=== PATIENT | female | born 1955 | race Caucasian/White ===

== ENCOUNTER 2018-07-22 09:41 | Observation (INO) ==
[2018-07-22 10:27] LABS: Basophils % 0.4 % (0.0-0.8); Eosinophils # 0.2 10*3/uL (0.0-0.87); Eosinophils % 1.5 % (0.00-10.9); Hematocrit 37.7 VOL% (35.7-47.0); Hemoglobin 11.8 GM/DL (12.0-16.0); Immature Granulocytes % 0.7 %; Immature Granulocytes Absolute 0.07 #; Lymphocytes # 0.9 10*3/uL (1.4-4.0); Mean Corpuscular HGB Conc 31.3 GM/DL (32-36); Mean Corpuscular Hemoglobin 30 PG (27-34); Mean Corpuscular Volume 94.7 FL (87-102); Monocytes # 0.5 10*3/uL (0.11-0.8); Monocytes % 4.8 % (1.7-12.7); Neutrophils # 9.1 10*3/uL (1.4-7.4); Neutrophils % 84.6 % (38.7-73.9); Platelet Count 276 T/CUMM (130-400); Red Blood Count 3.98 MC/CUMM (3.8-5.5); Red Cell Distribution Width 14.2 % (9.3-17.3); White Blood Count 10.7 T/CUMM (4-12)
[2018-07-22 10:36] LABS: INR 3.8; Partial Thromboplastin Time 35.2 SECS (0-40)
[2018-07-22 10:46] LABS: PT Patient Result 40.9 SECS
[2018-07-22 10:59] LABS: Albumin 3.3 G/DL (3.4-5.0); Bilirubin,Total 0.5 MG/DL (0.2-1.0); Calcium 8.7 MG/DL (8.5-10.1); Osmolality,Calculated 295.1 MOS/KG (273-304); Potassium 4.8 MMOL/L (3.5-5.1); Total Protein 6.7 G/DL (6.4-8.3)
[2018-07-22] MEDS ORDERED: SODIUM CHLORIDE 0.9% 500 ML IV STA (11:39)
[2018-07-22] MEDS ORDERED: MECLIZINE 25 MG TABLET PO STA (11:40)
[2018-07-22] MEDS ORDERED: SODIUM CHLORIDE 0.9% 1,000 ML IV STA (11:47)
[2018-07-22] MEDS ORDERED: ONDANSETRON 4 MG/2 ML VIAL IV PRN (13:32)
[2018-07-22] MEDS ORDERED: DEXTROSE 50% 25 GM/50 ML VIAL IV PRN (13:37)
[2018-07-22] MEDS ORDERED: GLUCAGON 1 MG VIAL IM PRN (13:37)
[2018-07-22 13:49] LABS: Apearance,Urine Slightly Hazy (Clear); Bacteria,Urine Few /HPF (Few); Bilirubin,Urine Small mg/dL (Negative); Blood, Urine Small mg/dL (Negative); Glucose,Urine (UA) Negative (Negative); Hyaline Casts,Urine 13 /LPF (0-3); Ketones,Urine 5 mg/dL (Negative); Mucus,Urine Occasional /LPF (Occasional); Nitrite,Urine Negative (Negative); Protein,Urine 30 MG/DL; RBC,Urine 9 /HPF (0-4); Squamous Epithelial Cell,Urine Occasional /HPF (0-10); Urine Color Amber (Yellow); Urine Specific Gravity 1.021 (1.001-1.035); WBC,Urine 12 /HPF (0-6)
[2018-07-22] MEDS: ACETAMINOPHEN 325 MG TABLET PO PRN (14:41)
[2018-07-22] MEDS: LIDOCAINE 5% PATCH TRANSDERM SCH (15:21)
[2018-07-22] MEDS: LEVOFLOXACIN INJ 500 MG in PREMIX 1 EACH IV SCH (17:17)
[2018-07-22] MEDS: INSULIN LISPRO 100 UNIT/ML SUBCUT SCH ×3 (17:48→20:30)
[2018-07-22] MEDS: ATORVASTATIN 20 MG TABLET PO SCH (20:30)
[2018-07-22] MEDS: DULoxetine 30 MG CAPSULE PO SCH (20:30)
[2018-07-22] MEDS ORDERED: CICLOPIROX OLAMINE TOP SCH (21:00)
[2018-07-23] MEDS: ACETAMINOPHEN 325 MG TABLET PO PRN (02:46)
[2018-07-23 05:01] LABS: Basophils % 0.2 % (0.0-0.8); Eosinophils # 0.2 10*3/uL (0.0-0.87); Eosinophils % 2.5 % (0.00-10.9); Hematocrit 29.9 VOL% (35.7-47.0); Hemoglobin 9.2 GM/DL (12.0-16.0); Immature Granulocytes % 0.5 %; Immature Granulocytes Absolute 0.04 #; Lymphocytes # 0.9 10*3/uL (1.4-4.0); Lymphocytes % 11.1 % (21.3-54.2); Mean Corpuscular HGB Conc 30.8 GM/DL (32-36); Mean Corpuscular Hemoglobin 29 PG (27-34); Mean Corpuscular Volume 94.9 FL (87-102); Monocytes # 0.6 10*3/uL (0.11-0.8); Monocytes % 7.8 % (1.7-12.7); Neutrophils # 6.3 10*3/uL (1.4-7.4); Neutrophils % 77.9 % (38.7-73.9); Platelet Count 210 T/CUMM (130-400); Red Blood Count 3.15 MC/CUMM (3.8-5.5); Red Cell Distribution Width 14.3 % (9.3-17.3); White Blood Count 8.1 T/CUMM (4-12)
[2018-07-23 05:34] LABS: Albumin 2.6 G/DL (3.4-5.0); Bilirubin,Total 0.6 MG/DL (0.2-1.0); Calcium 8.3 MG/DL (8.5-10.1); Osmolality,Calculated 297.8 MOS/KG (273-304); Total Protein 5.7 G/DL (6.4-8.3)
[2018-07-23] MEDS ORDERED: ALLOPURINOL 100 MG TABLET PO SCH (09:00)
[2018-07-23] MEDS: INSULIN LISPRO 100 UNIT/ML SUBCUT SCH ×7 (09:30→21:16)
[2018-07-23] MEDS: INSULIN GLARGINE 100 UNIT/ML SUBCUT SCH (09:30)
[2018-07-23] MEDS: DULoxetine 30 MG CAPSULE PO SCH ×2 (09:31→21:17)
[2018-07-23] MEDS: ALLOPURINOL 300 MG TABLET PO SCH (09:31)
[2018-07-23] MEDS: PANTOPRAZOLE 40 MG TABLET PO SCH (09:31)
[2018-07-23 09:39] LABS: Risk Ratio 2.88
[2018-07-23 10:31] LABS: INR 3.9
[2018-07-23 10:33] LABS: PT Patient Result 41.7 SECS
[2018-07-23] MEDS: LIDOCAINE 5% PATCH TRANSDERM SCH (15:43)
[2018-07-23] MEDS: LEVOFLOXACIN INJ 500 MG in PREMIX 1 EACH IV SCH (15:44)
[2018-07-23] MEDS ORDERED: WARFARIN 2.5 MG TABLET PO SCH (18:00)
[2018-07-23] MEDS ORDERED: traZODone 50 MG TABLET PO SCH (21:00)
[2018-07-23] MEDS ORDERED: MELATONIN 3 MG TABLET PO SCH (21:00)
[2018-07-23] MEDS: DICLOFENAC 1% GEL 100 GM TUBE TOP SCH (21:16)
[2018-07-23] MEDS: ATORVASTATIN 20 MG TABLET PO SCH (21:17)
[2018-07-24 05:48] LABS: Basophils % 0.3 % (0.0-0.8); Eosinophils # 0.2 10*3/uL (0.0-0.87); Eosinophils % 3.8 % (0.00-10.9); Hematocrit 27.1 VOL% (35.7-47.0); Hemoglobin 8.4 GM/DL (12.0-16.0); Immature Granulocytes % 0.3 %; Immature Granulocytes Absolute 0.02 #; Lymphocytes # 0.7 10*3/uL (1.4-4.0); Lymphocytes % 11.1 % (21.3-54.2); Mean Corpuscular Hemoglobin 30 PG (27-34); Mean Corpuscular Volume 95.1 FL (87-102); Mean Platelet Volume 11.4 FL (9.6-12.0); Monocytes # 0.6 10*3/uL (0.11-0.8); Monocytes % 9.7 % (1.7-12.7); Neutrophils # 4.8 10*3/uL (1.4-7.4); Neutrophils % 74.8 % (38.7-73.9); Platelet Count 199 T/CUMM (130-400); Red Blood Count 2.85 MC/CUMM (3.8-5.5); Red Cell Distribution Width 14.2 % (9.3-17.3); White Blood Count 6.4 T/CUMM (4-12)
[2018-07-24 05:52] LABS: INR 2.5
[2018-07-24 05:55] LABS: PT Patient Result 26.5 SECS
[2018-07-24 06:18] LABS: Osmolality,Calculated 296.8 MOS/KG (273-304)
[2018-07-24] MEDS ORDERED: ATORVASTATIN 20 MG TABLET PO SCH (06:58)
[2018-07-24] MEDS: DULoxetine 30 MG CAPSULE PO SCH (09:09)
[2018-07-24] MEDS: ALLOPURINOL 300 MG TABLET PO SCH (09:10)
[2018-07-24] MEDS: PANTOPRAZOLE 40 MG TABLET PO SCH (09:10)
[2018-07-24] MEDS: INSULIN GLARGINE 100 UNIT/ML SUBCUT SCH (09:10)
[2018-07-24] MEDS: INSULIN LISPRO 100 UNIT/ML SUBCUT SCH ×4 (09:11→12:26)
[2018-07-24] MEDS: DICLOFENAC 1% GEL 100 GM TUBE TOP SCH ×2 (09:12→13:04)
[2018-07-24] MEDS ORDERED: LEVOFLOXACIN 500 MG TABLET PO SCH (13:30)
[2018-07-24] MEDS ORDERED: CEFEPIME 2,000 MG in SYRINGE 1 EACH IV ONE (16:00)
[2018-07-24 16:33] VITALS: BP 119/80
[2018-07-24] MEDS ORDERED: INFLUENZA VIRUS VACCINE 0.5 ML SYRINGE IM ONE (17:45)
[2018-07-24] MEDS ORDERED: WARFARIN 5 MG TABLET PO SCH (18:00)
[2018-07-24] MEDS ORDERED: WARFARIN 3 MG TABLET PO SCH (18:00)
== END 2018-07-24 17:55 | disposition home or self-care (01) ==
LOC: N.ED 09:41 → N.EDINP 09:41 → N.3E 13:31
PROVIDERS: ADMIT Internal Medicine; ATTEND Internal Medicine